=== PATIENT | male | born 1945 | race American Indian/Alaskan Native ===

== ENCOUNTER 2018-05-05 08:02 | Outpatient (CLI) | payer MEDICARE, BC | END 2018-05-05 08:03 | disposition home or self-care (01) | LOC: C.PAT 08:02 | DX: Z12.11 Encounter for screening for malignant neoplasm of colon (principal) ==

== ENCOUNTER 2018-06-16 07:13 | Day surgery (SDC) | payer MEDICARE, BC ==
[2018-05-05 08:16] VITALS: BMI 18.8
[2018-06-16] MEDS ORDERED: Lidocaine 4% (Laryng-O-Jet) Kit MM ONE (08:42)
[2018-06-16] MEDS ORDERED: Midazolam 2 MG/2 ML VIAL ONE (08:47)
[2018-06-16] MEDS ORDERED: Propofol 10 mg/ml Inj (20 ML) ONE (08:47)
== END 2018-06-16 12:10 | disposition home or self-care (01) ==
LOC: C.CATHLAB 07:13
PROVIDERS: ATTEND Internal Medicine Cardiovascular Disease
DX: I34.0 Nonrheumatic mitral (valve) insufficiency (principal)
CPT/HCPCS: 93312; J2250; J2704